=== PATIENT | female | born 1990 | race Caucasian/White ===

== ENCOUNTER 2017-04-01 20:43 | Inpatient (IN) | payer OTHER ==
[2017-04-01] MEDS ORDERED: SODIUM CHLORIDE 1,000 ML IV STA (21:31)
[2017-04-01] MEDS ORDERED: KETOROLAC TROMETHAMINE 30 MG/1 ML VIAL IVPUSH ONE (21:31)
--- NOTE | 2017-04-01 21:40 | PDOC ---
History of Present Illness - General Chief Complaint: Pain Stated Complaint: ABDOMINAL PAIN, SWEATING Time Seen by Provider: 04/01/17 21:19 Past History - Past Medical History Allergies/Adverse Reactions: Allergies Allergy/AdvReac Type Severity Reaction Status Date / Time No Known Allergies Allergy Verified 04/01/17 20:58 Other medical history: denies - Suicide/Smoking/Psychosocial Hx Smoking History: Never smoked *Physical Exam - Vital Signs Last Vital Signs Temp Pulse Resp BP Pulse Ox 97.9 F 85 18 137/91 99 04/01/17 20:55 04/01/17 20:55 04/01/17 20:55 04/01/17 20:55 04/01/17 20:55
--- NOTE | 2017-04-01 21:41 | PDOC ---
Attending Attestation - Resident Resident Name: Harrison Pham - ED Attending Attestation I have performed the following: I have examined & evaluated the patient, The case was reviewed & discussed with the resident, I agree w/resident's findings & plan, Exceptions are as noted - HPI HPI: 04/02/17 01:23 27 yo female p/w severe epigastric pain - Physicial Exam PE: 04/02/17 01:24 WNWD 27 yo female p/w severe epigastric pain radiating to her back HEENT wnl neck supple lungs cta b/l cvs [id number] abd soft,but RUQ tender to palpation++, lower abd is nontender neuro axox3,ambulatory - Medical Decision Making 04/02/17 01:34 elevated LFTs,Tbili>3 , gallbladder 04/03/17 01:42 pt admitted med/surg cholecystitis
[2017-04-01 22:04] LABS: EOSINOPHIL 0.7 % (0-4.5); MCH 28.2 pg (25.7-33.7); MCHC 33.8 g/dl (32.0-36.0); MEAN CELL VOLUME 83.5 fl (80-96); MEAN PLT VOLUME 9.6 fl (7.5-11.1); NEUTROPHILS 67.6 % (42.8-82.8); PLATELET COUNT 246 K/MM3 (134-434); RDW 14.7 % (11.6-15.6); WHITE BLOOD COUNT 8.8 K/mm3 (4.0-10.0)
--- NOTE | 2017-04-01 22:06 | PDOC ---
History of Present Illness - General Chief Complaint: Pain Stated Complaint: ABDOMINAL PAIN, SWEATING Time Seen by Provider: 04/01/17 21:19 - History of Present Illness Initial Comments: 04/01/17 21:49 27 yo F with h/o GERD, and Gastric Sleeve (2011) who presents with abdominal pain. Pt. states that 2 hours ago she experienced sudden onset of diffuse radiating abdominal pain. Pain is unrelenting, 10/10 severity, with burning quality, and radiation to BL flank. No aggravating or alleviating factors. Endorses 1 episode of non biliary, non bloody emesis 24 hours ago attributed to alcohol consumption. + epigastric pain. Denies fevers/chills, SOB, dysuria, hematuria, blood per rectum, constipation, diarrhea, irregular vaginal bleeding. LMP [address] Prabhakar Velarde. Reports that she was recently seen at urgent care facility for UTI 1 week ago and non adherent to Metronidazole and Cipro d/t recurrent N/V, and GI upset. + Weekly alcohol consumption and tobacco use. Denies illicit drug use. Past History - Past Medical History Allergies/Adverse Reactions: Allergies Allergy/AdvReac Type Severity Reaction Status Date / Time No Known Allergies Allergy Verified 04/01/17 20:58 Home Medications: Ambulatory Orders NK [No Known Home Medication] 04/01/17 Other medical history: denies - Suicide/Smoking/Psychosocial Hx Smoking History: Never smoked Review of Systems - Review of Systems Comments:: 04/02/17 00:27 GENERAL/CONSTITUTIONAL: No fever or chills. No weakness. HEAD, EYES, EARS, NOSE AND THROAT: No change in vision. No ear pain or discharge. No sore throat.- CARDIOVASCULAR: No chest pain or shortness of breath RESPIRATORY: No cough, wheezing, or hemoptysis. GASTROINTESTINAL: + abdominal pain and nausea. No vomiting, diarrhea or constipation. GENITOURINARY: + dysuria,No change in frequency, or change in urination. MUSCULOSKELETAL: No joint or muscle swelling or pain. No neck or back pain. SKIN: No rash NEUROLOGIC: No headache, vertigo, loss of consciousness, or change in strength/ sensation. ENDOCRINE: No increased thirst. No abnormal weight change HEMATOLOGIC/LYMPHATIC: No anemia, easy bleeding, or history of blood clots. ALLERGIC/IMMUNOLOGIC: No hives or skin allergy. *Physical Exam - Vital Signs Last Vital Signs Temp Pulse Resp BP Pulse Ox 97.9 F 85 18 137/91 99 04/01/17 20:55 04/01/17 20:55 04/01/17 20:55 04/01/17 20:55 04/01/17 20:55 - Physical Exam Comments: 04/01/17 22:42 GENERAL: Awake, alert, and fully oriented, in no acute distress HEAD: No signs of trauma, normocephalic, atraumatic EYES: + Scleral icterus, PERRLA, EOMI, , conjunctiva clear ENT: Auricles normal inspection, hearing grossly normal, nares patent, oropharynx clear without exudates. Moist mucosa NECK: Normal ROM, supple, no lymphadenopathy, JVD, or masses LUNGS: No distress, speaks full sentences, clear to auscultation bilaterally HEART: Regular rate and rhythm, normal S1 and S2, no murmurs, rubs or gallops, peripheral pulses normal and equal bilaterally. ABDOMEN:+ Epigastric ttp. + Left sided CVA ttp. + RUQ/LUQ ttp. normoactive bowel sounds. No guarding, no rebound, or rigidity. No masses. Neg forde sign. Neg McBurney point ttp. EXTREMITIES : Normal inspection, Normal range of motion, no edema. No clubbing or cyanosis. SKIN: Warm, Dry, normal turgor, no rashes or lesions noted. ED Treatment Course - LABORATORY CBC & Chemistry Diagram: 04/01/17 22:00 04/01/17 22:45 - RADIOLOGY Radiology Studies Ordered: Category Date Time Status GALLBLADDER US [US] Stat Ultrasound 04/01/17 21:41 Ordered Medical Decision Making - Medical Decision Making 04/01/17 22:46 27 yo F with h/o GERD, and Gastric Sleeve (2011) who presents with abdominal pain of 2 hours duration with sudden onset of diffuse, burning epigastric pain radiating to BL flank. 1 episode of non biliary, non bloody emesis 24 hours ago attributed to alcohol consumption. No fevers/chills or other asx. symptoms. Recently evaluated at urgent care facility for UTI 1 week ago and non adherent to Metronidazole and Cipro d/t recurrent N/V, and GI upset. Pt. Hemodynamically stable and afebrile. Physical exam revealed epigastirc ttp and left sided CVA tenderness. DDx: Dyspepsia, nephrolithiasis,choleycytsitis, cholethiasis, pyelonephritis ED Course: CBC, CMP, UA, Urine Preg, RUQ U/S NS 1 L Toradol 30 mg.IVPB, Zofran 4 mg IVPB 04/01/17 22:51 CBC~WBC 8.8 04/02/17 00:28 AST/ALT: 224/430 Alk.Phosph: 196 04/02/17 00:29 Lipase: 159 04/02/17 12:22 Handoff to *DC/Admit/Observation/Transfer Diagnosis at time of Disposition: Acute cholecystitis, Elevated liver enzymes
[2017-04-01] MEDS ORDERED: ONDANSETRON 4 MG/2 ML VIAL IVPB ONE (22:51)
[2017-04-01] MEDS ORDERED: ONDANSETRON 4 MG/2 ML VIAL ONE (23:52)
[2017-04-01 23:59] LABS: ALBUMIN 3.2 g/dl (3.4-5.0); ANION GAP 11 (8-16); CALCIUM 8.4 mg/dL (8.5-10.1); CO2 24 mmol/L (21-32); CREATININE 0.5 mg/dL (0.55-1.02); GLUCOSE,RANDOM 80 mg/dL (74-106); SGOT/AST 224 U/L (15-37)
[2017-04-02 00:01] LABS: ALK PHOS 196 U/L (45-117); BILIRUBIN,TOTAL 3.2 mg/dL (0.2-1.0); SGPT/ALT 430 U/L (12-78)
[2017-04-02] MEDS ORDERED: PIPERACILLIN/TAZOB 3.375 GM 50 ML IVPB ONE ×2 (02:06→03:23)
--- NOTE | 2017-04-02 02:07 | PDOC ---
*Physical Exam - Vital Signs Last Vital Signs Temp Pulse Resp BP Pulse Ox 97.9 F 85 18 137/91 99 04/01/17 20:55 04/01/17 20:55 04/01/17 20:55 04/01/17 20:55 04/01/17 20:55 ED Treatment Course - LABORATORY CBC & Chemistry Diagram: 04/01/17 22:00 04/01/17 22:45 - ADDITIONAL ORDERS Additional order review: Laboratory Results 04/01/17 04/01/17 04/01/17 22:45 22:45 22:00 Sodium 139 Cancelled Potassium 3.3 L Cancelled Chloride 104 Cancelled Carbon Dioxide 24 Cancelled Anion Gap 11 Cancelled BUN 12 Cancelled Creatinine 0.5 L Cancelled Creat Clearance w eGFR > 60 Cancelled Random Glucose 80 Cancelled Calcium 8.4 L Cancelled Total Bilirubin 3.2 H Cancelled AST 224 H Cancelled ALT 430 H Cancelled Alkaline Phosphatase 196 H Cancelled Total Protein 7.0 Cancelled Albumin 3.2 L Cancelled Lipase 159 Serum , Qual Negative 04/01/17 22:00 Sodium Potassium Chloride Carbon Dioxide Anion Gap BUN Creatinine Creat Clearance w eGFR Random Glucose Calcium Total Bilirubin AST ALT Alkaline Phosphatase Total Protein Albumin Lipase Cancelled Serum , Qual 04/01/17 22:00 RBC 4.76 MCV 83.5 MCHC 33.8 RDW 14.7 MPV 9.6 Neutrophils % 67.6 Lymphocytes % 23.0 Monocytes % 7.7 Eosinophils % 0.7 Basophils % 1.0 - Medications Given in the ED: ED Medications Discontinued Medications Generic Name Dose Route Start Last Admin Trade Name Freq PRN Reason Stop Dose Admin Sodium Chloride 1,000 mls @ 1,000 mls/hr 04/01/17 21:31 04/01/17 21:59 Normal Saline - IV 04/01/17 22:30 1,000 mls/hr ASDIR STA Administration Ketorolac Tromethamine 30 mg 04/01/17 21:31 04/01/17 21:59 Toradol Injection - IVPUSH 04/01/17 21:32 30 mg ONCE ONE Administration Ondansetron HCl 4 mg 04/01/17 22:51 04/01/17 23:56 Zofran Injection IVPB 04/01/17 22:52 Not Given ONCE ONE *DC/Admit/Observation/Transfer Diagnosis at time of Disposition: Acute cholecystitis, Elevated liver enzymes - Discharge Dispostion Admit: Yes
[2017-04-02] MEDS ORDERED: ONDANSETRON 4 MG/2 ML VIAL IVPUSH PRN (11:11)
[2017-04-02] MEDS ORDERED: morphine CARPU-JECT 2 MG/1 ML DISP.SYRIN IVPUSH PRN (11:11)
[2017-04-02 11:21] LABS: URINE APPEARANCE SLCLOUDY; URINE BILIRUBIN NEGATIVE (NEGATIVE); URINE BLOOD 3+ (NEGATIVE); URINE COLOR AMBER; URINE GLUCOSE (UA) NEGATIVE (NEGATIVE); URINE KETONE NEGATIVE (NEGATIVE); URINE NITRITE NEGATIVE (NEGATIVE)
[2017-04-02 11:22] LABS: URINE PROTEIN 1+ (NEGATIVE)
[2017-04-02 11:24] VITALS: BMI 40.3
[2017-04-02 11:24] LABS: URINE BACTERIA RARE /hpf (NONE SEEN); URINE MUCUS RARE; URINE RBC 134 /hpf (0-3); URINE WBC 9 /hpf (3-5)
[2017-04-02] MEDS: DEXTROSE 5%-0.45% SALINE 1,000 ML IV SCH (12:00)
[2017-04-02 12:50] LABS: URINE LEUK ESTERASE TRACE (NEGATIVE)
[2017-04-02 13:16] LABS: BASOPHIL 1.1 % (0-2.0); MCH 27.4 pg (25.7-33.7); MCHC 33.1 g/dl (32.0-36.0); MEAN CELL VOLUME 82.9 fl (80-96); MEAN PLT VOLUME 8.9 fl (7.5-11.1); NEUTROPHILS 64.6 % (42.8-82.8); PLATELET COUNT 199 K/MM3 (134-434); RDW 14.6 % (11.6-15.6); WHITE BLOOD COUNT 5.9 K/mm3 (4.0-10.0)
[2017-04-02 13:44] LABS: ALBUMIN 3.1 g/dl (3.4-5.0); ANION GAP 12 (8-16); CALCIUM 8.1 mg/dL (8.5-10.1); CO2 23 mmol/L (21-32); CREATININE 0.5 mg/dL (0.55-1.02); GLUCOSE,RANDOM 89 mg/dL (74-106); SGOT/AST 261 U/L (15-37)
[2017-04-02 13:47] LABS: ALK PHOS 191 U/L (45-117); BILIRUBIN,TOTAL 3.3 mg/dL (0.2-1.0); TOT PROT 6.8 g/dl (6.4-8.2)
[2017-04-02 13:48] LABS: SGPT/ALT 459 U/L (12-78)
--- NOTE | 2017-04-02 16:20 | CONSULT ---
Consult Consult Specialty:: Surgery Reason for Consultation:: Acute cholecystitis - History of Present Illness Chief Complaint: abdominal pain History of Present Illness: 27 yo F with h/o GERD, and Gastric Sleeve (2011) who presents with abdominal pain. Pt. states that 2 hours ago she experienced sudden onset of diffuse radiating abdominal pain. Pain is unrelenting, 10/10 severity, with burning quality, and radiation to BL flank. No aggravating or alleviating factors. Endorses 1 episode of non biliary, non bloody emesis 24 hours ago attributed to alcohol consumption. + epigastric pain. Denies fevers/chills, SOB, dysuria, hematuria, blood per rectum, constipation, diarrhea, irregular vaginal bleeding. Reports that she was recently seen at urgent care facility for UTI 1 week ago and non adherent to Metronidazole and Cipro d/t recurrent N/V, and GI upset. Currently with minimal pain. - History Source History Provided By: Patient Limitations to Obtaining History: No Limitations - Past Medical History ...LMP: 04/02/17 - Alcohol/Substance Use Hx Alcohol Use: Yes - Smoking History Smoking history: Never smoked - Social History History of Recent Travel: No Home Medications - Allergies Allergies/Adverse Reactions: Allergies Allergy/AdvReac Type Severity Reaction Status Date / Time No Known Allergies Allergy Verified 04/01/17 20:58 - Home Medications Home Medications: Ambulatory Orders NK [No Known Home Medication] 04/01/17 Review of Systems - Review of Systems Constitutional: reports: No Symptoms, Other Eyes: reports: No Symptoms HENT: reports: No Symptoms Neck: reports: No Symptoms Cardiovascular: reports: No Symptoms Respiratory: reports: No Symptoms Gastrointestinal: reports: Abdominal Pain, Nausea Pain Intensity: 1 Physical Exam Vital Signs: Vital Signs Temperature 98.2 F 04/02/17 09:08 Pulse Rate 80 04/02/17 11:11 Respiratory Rate 18 04/02/17 11:11 Blood Pressure 126/75 04/02/17 11:11 O2 Sat by Pulse Oximetry (%) 98 04/02/17 11:11 Constitutional: Yes: Well Nourished, No Distress HENT: Yes: Normocephalic Neck: Yes: Supple Cardiovascular: Yes: Regular Rate and Rhythm Respiratory: Yes: CTA Bilaterally Gastrointestinal: Yes: Soft, Abdomen, Obese, Tenderness, Epigastrium (mild) ...Rectal Exam: Yes: Deferred Renal/: Yes: WNL Extremities: Yes: WNL Edema: No Neurological: Yes: Alert, Oriented Labs: CBC, BMP 04/02/17 13:00 04/02/17 13:00 Imaging - Results Cat Scan: Report Reviewed, Image Reviewed Ultrasound: Report Reviewed, Image Reviewed Problem List - Problems (1) Acute cholecystitis Code(s): K81.0 - ACUTE CHOLECYSTITIS Assessment/Plan cholelithiasis r/o choledocholithiasis GI CONSULT MRCP
--- NOTE | 2017-04-02 16:21 | CON.ID ---
Consult Consult Specialty:: infectious diseases Referred by:: Reason for Consultation:: choleycystitis - History of Present Illness Chief Complaint: abd pain History of Present Illness: 27 yo F with h/o GERD, and Gastric Sleeve admitted with abdominal pain. Pt. states that she experienced sudden onset of diffuse radiating abdominal pain. Pain was unrelenting, 10/10 severity, with burning quality, and radiation to BL flank. No aggravating or alleviating factors. Endorses 1 episode of non biliary , non bloody emesis 24 hours ago attributed to alcohol consumption. + epigastric pain. Denies fevers/chills, SOB, dysuria, patient was seen for similar type of pain and thought of uti was there patient received course of flagyl which she stopped because of nausea then she was given cipro which she took for few days felt better so she stopped the med now again since last 2 weeks her pain has flared up in the ruq which forced her to come to the hospital which shows dilation of cbd as well as gall stones currently she feels better - History Source History Provided By: Patient Limitations to Obtaining History: No Limitations - Past Medical History ...LMP: 04/02/17 - Smoking History Smoking history: Never smoked Home Medications - Allergies Allergies/Adverse Reactions: Allergies Allergy/AdvReac Type Severity Reaction Status Date / Time No Known Allergies Allergy Verified 04/01/17 20:58 - Home Medications Home Medications: Ambulatory Orders NK [No Known Home Medication] 04/01/17 Review of Systems - Review of Systems Constitutional: reports: No Symptoms Eyes: reports: No Symptoms HENT: reports: No Symptoms Neck: reports: No Symptoms Cardiovascular: reports: No Symptoms Respiratory: reports: No Symptoms Gastrointestinal: reports: Abdominal Pain, Nausea Genitourinary: reports: No Symptoms Musculoskeletal: reports: No Symptoms Integumentary: reports: No Symptoms Neurological: reports: No Symptoms Endocrine: reports: No Symptoms Hematology/Lymphatic: reports: No Symptoms Psychiatric: reports: No Symptoms Physical Exam Vital Signs: Vital Signs Temperature 98.2 F 04/02/17 09:08 Pulse Rate 80 04/02/17 11:11 Respiratory Rate 18 04/02/17 11:11 Blood Pressure 126/75 04/02/17 11:11 O2 Sat by Pulse Oximetry (%) 98 04/02/17 11:11 Constitutional: Yes: Well Nourished, Calm, Mild Distress, Obese Eyes: Yes: Conjunctiva Clear HENT: Yes: Atraumatic, Normocephalic Neck: Yes: Supple, Trachea Midline Cardiovascular: Yes: Regular Rate and Rhythm Respiratory: Yes: Regular, CTA Bilaterally Gastrointestinal: Yes: Normal Bowel Sounds, Soft, Tenderness, Epigastrium (and ruq) Musculoskeletal: Yes: WNL Extremities: Yes: WNL Neurological: Yes: Alert, Oriented Psychiatric: Yes: Alert, Oriented Labs: CBC, BMP 04/02/17 13:00 04/02/17 13:00 Imaging - Results Ultrasound: Report Reviewed, Image Reviewed Assessment/Plan after loknjg at the patient she probably had choleycystitis which was treated and chances that she could ahve passed a stone cholelithiasis r/o choledocholithiasis surgery note noted plan will start patient on unasyn await for all the results gi to see the patient mrcp rest as per primary
[2017-04-02] MEDS ORDERED: AMPICILLIN NA/SULBACTAM NA 3 GM in SODIUM CHLORIDE 100 ML IVPB SCH (18:00)
[2017-04-02] MEDS: PIPERACILLIN/TAZOB 3.375 GM 50 ML IVPB SCH (18:46)
--- NOTE | 2017-04-02 20:58 | PN ---
Progress Note, Physician - Current Medication List Current Medications: Active Medications Heparin Sodium (Porcine) (Heparin -) 5,000 unit SQ BID [facility] Dextrose/Sodium Chloride (D5-1/2ns -) 1,000 mls @ 75 mls/hr IV ASDIR [facility] Last Admin: 04/02/17 12:00 Dose: 75 mls/hr Piperacillin/Tazobactam/Dextrose (Zosyn 3.375gm Ivpb (Premix)) 50 mls @ 100 mls /hr IVPB Q8H-IV [facility] Last Admin: 04/02/17 18:46 Dose: 100 mls/hr Morphine Sulfate (Morphine Injection -) 2 mg IVPUSH Q6H PRN PRN Reason: PAIN Last Admin: 04/02/17 14:26 Dose: 2 mg Ondansetron HCl (Zofran Injection) 4 mg IVPUSH Q6H PRN PRN Reason: NAUSEA - Objective Vital Signs: Vital Signs Temperature 97.6 F 04/02/17 17:43 Pulse Rate 57 L 04/02/17 17:43 Respiratory Rate 18 04/02/17 17:43 Blood Pressure 112/71 04/02/17 17:43 O2 Sat by Pulse Oximetry (%) 98 04/02/17 11:11 Labs: CBC, BMP 04/02/17 13:00 04/02/17 13:00
--- NOTE | 2017-04-02 21:01 | HP ---
Admitting History and Physical - Admission History of Present Illness: Pt is a 27 y/o female with PMH significant for GERD, morbid obesity and s/p gastric sleeve. Pt presented to the ER w/ acute onset of abdominal pain wc was mostly epigastric to RUQ and associated w/ 1 episode pf vomiting. About 1 week prior pt was treated w/ 2 antibxs for UTI. Pt also admits to recently drinking etoh and thought pain/vomiting was due to etoh. Pt had abdominal US wc showed acute cholecystitis. MRI abd was also done wc showed choledocholithiasis and gallbladder in neck of gallbladder/acute choleycystitis. History Source: Patient - Past Medical History Gastrointestinal: Yes: GERD ...LMP: 04/02/17 - Past Surgical History Additional Past Surgical History: Gastric sleeve - Smoking History Smoking history: Never smoked Home Medications - Allergies Allergies/Adverse Reactions: Allergies Allergy/AdvReac Type Severity Reaction Status Date / Time No Known Allergies Allergy Verified 04/01/17 20:58 - Home Medications Home Medications: Ambulatory Orders NK [No Known Home Medication] 04/01/17 Family Disease History - Family Disease History Family History: Unremarkable Review of Systems - Review of Systems Constitutional: reports: No Symptoms Eyes: reports: No Symptoms HENT: reports: No Symptoms Neck: reports: No Symptoms Cardiovascular: reports: No Symptoms Respiratory: reports: No Symptoms Gastrointestinal: reports: Abdominal Pain, Nausea, Vomiting Physical Examination Vital Signs: Vital Signs Temperature 97.6 F 04/02/17 17:43 Pulse Rate 57 L 04/02/17 17:43 Respiratory Rate 18 04/02/17 17:43 Blood Pressure 112/71 04/02/17 17:43 O2 Sat by Pulse Oximetry (%) 98 04/02/17 11:11 Constitutional: Yes: Well Nourished Eyes: Yes: WNL HENT: Yes: WNL, Atraumatic Neck: Yes: WNL, Supple Cardiovascular: Yes: WNL, Regular Rate and Rhythm Respiratory: Yes: WNL, Regular, CTA Bilaterally Gastrointestinal: Yes: WNL, Normal Bowel Sounds, Soft, Abdomen, Obese Labs: CBC, BMP 04/02/17 13:00 04/02/17 13:00 Problem List - Problems (1) Acute cholecystitis Assessment/Plan: Cont NPO IVF IV zosyn Surgical/GI/ID consults Monitor LFT's Code(s): K81.0 - ACUTE CHOLECYSTITIS
[2017-04-02] MEDS: HEPARIN NA (PORCINE) 5,000 UNITS/ML 1ML VIAL SQ SCH (21:23)
[2017-04-03] MEDS: DEXTROSE 5%-0.45% SALINE 1,000 ML IV SCH ×2 (01:51→21:53)
[2017-04-03] MEDS: PIPERACILLIN/TAZOB 3.375 GM 50 ML IVPB SCH ×3 (01:51→17:35)
[2017-04-03 07:48] LABS: EOSINOPHIL 2.1 % (0-4.5); MCHC 33.7 g/dl (32.0-36.0); MEAN CELL VOLUME 83.1 fl (80-96); MEAN PLT VOLUME 9.2 fl (7.5-11.1); NEUTROPHILS 57.8 % (42.8-82.8); PLATELET COUNT 212 K/MM3 (134-434); RDW 14.3 % (11.6-15.6); WHITE BLOOD COUNT 5.5 K/mm3 (4.0-10.0)
[2017-04-03 08:06] LABS: ALBUMIN 2.9 g/dl (3.4-5.0); ALK PHOS 168 U/L (45-117); ANION GAP 8 (8-16); BILIRUBIN,TOTAL 3.3 mg/dL (0.2-1.0); CALCIUM 8.2 mg/dL (8.5-10.1); CO2 26 mmol/L (21-32); CREATININE 0.6 mg/dL (0.55-1.02); GLUCOSE,RANDOM 91 mg/dL (74-106); SGOT/AST 377 U/L (15-37); TOT PROT 6.4 g/dl (6.4-8.2)
[2017-04-03 09:08] LABS: SGPT/ALT 591 U/L (12-78)
[2017-04-03] MEDS: HEPARIN NA (PORCINE) 5,000 UNITS/ML 1ML VIAL SQ SCH ×2 (10:00→21:53)
--- NOTE | 2017-04-03 15:51 | PN ---
Progress Note, Physician History of Present Illness: patient feeling much better mri done awaiting final plan surgery and gi following - Current Medication List Current Medications: Active Medications Heparin Sodium (Porcine) (Heparin -) 5,000 unit SQ BID [facility] Last Admin: 04/03/17 10:00 Dose: Not Given Dextrose/Sodium Chloride (D5-1/2ns -) 1,000 mls @ 75 mls/hr IV ASDIR [facility] Last Admin: 04/03/17 01:51 Dose: 75 mls/hr Piperacillin/Tazobactam/Dextrose (Zosyn 3.375gm Ivpb (Premix)) 50 mls @ 100 mls /hr IVPB Q8H-IV [facility] Last Admin: 04/03/17 09:59 Dose: 100 mls/hr Morphine Sulfate (Morphine Injection -) 2 mg IVPUSH Q6H PRN PRN Reason: PAIN Last Admin: 04/02/17 14:26 Dose: 2 mg Ondansetron HCl (Zofran Injection) 4 mg IVPUSH Q6H PRN PRN Reason: NAUSEA - Objective Vital Signs: Vital Signs Temperature 98.1 F 04/03/17 15:00 Pulse Rate 63 04/03/17 15:00 Respiratory Rate 18 04/03/17 15:00 Blood Pressure 115/74 04/03/17 15:00 O2 Sat by Pulse Oximetry (%) 98 04/02/17 21:00 Constitutional: Yes: No Distress, Calm, Obese Cardiovascular: Yes: Regular Rate and Rhythm Respiratory: Yes: Regular, CTA Bilaterally Gastrointestinal: Yes: Normal Bowel Sounds, Soft Musculoskeletal: Yes: WNL Extremities: Yes: WNL Neurological: Yes: Alert, Oriented Psychiatric: Yes: Alert, Oriented Labs: CBC, BMP 04/03/17 06:00 04/03/17 06:00 Assessment/Plan cholelithiasis r/o choledocholithiasis plan conitnue abx await for final plan gi and surgery on case rest as per primary
--- NOTE | 2017-04-03 18:34 | PN ---
Progress Note (short form) - Note Progress Note: Denies abdominal pain or nausea Afebrile, VSS Abd: soft, no tenderness WBC = 5K MRCP = dilated CBD with multiple filling defects A: choledocholithiasis and cholelithiasis R: GI for possible ERCP CHOLECYSTECTOMY POST ERCP Problem List - Problems (1) Acute cholecystitis Code(s): K81.0 - ACUTE CHOLECYSTITIS
--- NOTE | 2017-04-03 19:21 | CON.GI ---
Consult Consult Specialty:: GI Referred by:: Dr Stanford Reason for Consultation:: Abdominal pain - History of Present Illness Chief Complaint: Abdominal pain History of Present Illness: Patient is 27 F with h/o gastric sleeve done 2012, GERD who states she has been having abdominal pain for the past 2 weeks that she thought was GERD-related. When the pain became severe, she came to the ER and was noted to have markedly elevated LFT's. last week, she had apin and was seen in an urgi clinic an vanesa Guzman for a presumed UTI because she had blood in her urine. She was menstruating at the time (and still is) She vomited x 1 24 hours prior to admission. She has no pain at this time. She is completely comfortable off pain meds. - History Source History Provided By: Patient Limitations to Obtaining History: No Limitations - Past Medical History Gastrointestinal: Yes: GERD ...LMP: 04/02/17 - Past Surgical History Past Surgical History: Yes: Bariatric Surgery - Alcohol/Substance Use Hx Alcohol Use: Yes - Smoking History Smoking history: Never smoked - Social History History of Recent Travel: No Home Medications - Allergies Allergies/Adverse Reactions: Allergies Allergy/AdvReac Type Severity Reaction Status Date / Time No Known Allergies Allergy Verified 04/01/17 20:58 - Home Medications Home Medications: Ambulatory Orders NK [No Known Home Medication] 04/01/17 Physical Exam-GI Vital Signs: Vital Signs Temperature 98.1 F 04/03/17 15:00 Pulse Rate 63 04/03/17 15:00 Respiratory Rate 18 04/03/17 15:00 Blood Pressure 115/74 04/03/17 15:00 O2 Sat by Pulse Oximetry (%) 98 04/02/17 21:00 Constitutional: Yes: No Distress, Obese Neck: Yes: Supple Cardiovascular: Yes: Regular Rate and Rhythm Respiratory: Yes: CTA Bilaterally Gastrointestinal Inspection: Yes: WNL ...Auscultate: Yes: Normoactive Bowel Sounds ...Palpate: Yes: Soft. No: Tenderness Labs: CBC, BMP 04/03/17 06:00 04/03/17 06:00 Abnormal Lab Results 04/03/17 06:00 Calcium 8.2 L Total Bilirubin 3.3 H AST 377 H D ALT 591 H D Alkaline Phosphatase 168 H Albumin 2.9 L Imaging - Results MRI: Report Reviewed (Stones in gb and CBD) Assessment/Plan 27 F s/p gastric sleeve with no prophylactic cholecystectomy (virtually 100% of bariatric patients develop gallstones) now with stone disease and increased LFT' s. She has no pain or tenderness at this time. t bili >3 and based on MRI showing ductal stones, needs an ERCP. Will arrange for Saturday afternoon. Continue IV AbRx Can have ice chips. IVF Trend LFTs as she may have passed stone Surgery on case and will do to after ERCP
--- NOTE | 2017-04-03 22:22 | PN ---
Progress Note, Physician History of Present Illness: No new complaints - Current Medication List Current Medications: Active Medications Heparin Sodium (Porcine) (Heparin -) 5,000 unit SQ BID [facility] Last Admin: 04/03/17 21:53 Dose: 5,000 unit Dextrose/Sodium Chloride (D5-1/2ns -) 1,000 mls @ 75 mls/hr IV ASDIR [facility] Last Admin: 04/03/17 21:53 Dose: 75 mls/hr Piperacillin/Tazobactam/Dextrose (Zosyn 3.375gm Ivpb (Premix)) 50 mls @ 100 mls /hr IVPB Q8H-IV [facility] Last Admin: 04/03/17 17:35 Dose: 100 mls/hr Morphine Sulfate (Morphine Injection -) 2 mg IVPUSH Q6H PRN PRN Reason: PAIN Last Admin: 04/02/17 14:26 Dose: 2 mg Ondansetron HCl (Zofran Injection) 4 mg IVPUSH Q6H PRN PRN Reason: NAUSEA - Objective Vital Signs: Vital Signs Temperature 97.8 F 04/03/17 19:44 Pulse Rate 53 L 04/03/17 19:44 Respiratory Rate 18 04/03/17 19:44 Blood Pressure 101/61 04/03/17 19:44 O2 Sat by Pulse Oximetry (%) 100 04/03/17 20:45 Constitutional: Yes: Well Nourished Neck: Yes: WNL, Supple Cardiovascular: Yes: WNL, Regular Rate and Rhythm Respiratory: Yes: WNL, Regular, CTA Bilaterally Gastrointestinal: Yes: WNL, Normal Bowel Sounds, Soft, Abdomen, Obese Labs: CBC, BMP 04/03/17 06:00 04/03/17 06:00 Problem List - Problems (1) Acute cholecystitis Assessment/Plan: MRI abd noted Pt to have ERCp Cont liquid diet IV zosyn Code(s): K81.0 - ACUTE CHOLECYSTITIS
[2017-04-04] MEDS: PIPERACILLIN/TAZOB 3.375 GM 50 ML IVPB SCH ×3 (01:52→17:38)
[2017-04-04 07:31] LABS: BASOPHIL 0.9 % (0-2.0); EOSINOPHIL 2.4 % (0-4.5); MCH 27.6 pg (25.7-33.7); MCHC 33.4 g/dl (32.0-36.0); MEAN CELL VOLUME 82.7 fl (80-96); MEAN PLT VOLUME 9.4 fl (7.5-11.1); NEUTROPHILS 58.9 % (42.8-82.8); PLATELET COUNT 204 K/MM3 (134-434); RDW 14.3 % (11.6-15.6)
[2017-04-04 07:53] LABS: INR 1.21 (0.82-1.09); PROTHROMBIN TIME (PATIENT) 13.7 SEC (9.98-11.88)
[2017-04-04 07:56] LABS: ACTIVATED PTT 33.4 SECONDS (26.9-34.4)
[2017-04-04 08:33] LABS: ALBUMIN 3.1 g/dl (3.4-5.0); BILIRUBIN,DIRECT 1.7 mg/dL (0.0-0.2); BILIRUBIN,TOTAL 2.6 mg/dL (0.2-1.0); TOT PROT 6.5 g/dl (6.4-8.2)
--- NOTE | 2017-04-04 10:18 | PN ---
Progress Note (short form) - Note Progress Note: Medical coverage for Dr. Stanford Subjective: The patient was seen and examined at the bedside, she has no complaints at this time. Current Medications Generic Name Dose Route Start Last Admin Trade Name Bob PRN Reason Stop Dose Admin Heparin Sodium (Porcine) 5,000 unit 04/02/17 22:00 04/03/17 21:53 Heparin - SQ 5,000 unit BID [facility] Administration Dextrose/Sodium Chloride 1,000 mls @ 75 mls/hr 04/02/17 11:15 04/03/17 21:53 D5-1/2ns - IV 75 mls/hr ASDIR [facility] Administration Piperacillin/Tazobactam/Dextrose 50 mls @ 100 mls/hr 04/02/17 18:00 04/04/17 01 :52 Zosyn 3.375gm Ivpb (Premix) IVPB 100 mls/hr Q8H-IV [facility] Administration Morphine Sulfate 2 mg 04/02/17 11:11 04/02/17 14:26 Morphine Injection - IVPUSH 2 mg Q6H PRN Administration PAIN Ondansetron HCl 4 mg 04/02/17 11:11 Zofran Injection IVPUSH Q6H PRN NAUSEA Objective: Vital Signs Period Temp Pulse Resp BP Sys/Majano Pulse Ox Last 24 Hr 97.7 F-98.7 F 53-63 16-18 99-138/61-80 100 Physical Exam: General: NAD, A&Ox3 Lungs: CTA bilaterally Heart: RRR, S1S2 Abd: Soft, non-tender, non-distended. Normoactive bowel sounds Ext: Warm, well-perfused Neuro: No focal deficits CBCD WBC 6.0 K/mm3 (4.0-10.0) 04/04/17 06:00 RBC 4.30 M/mm3 (3.60-5.2) 04/04/17 06:00 Hgb 11.9 GM/dL (10.7-15.3) 04/04/17 06:00 Hct 35.6 % (32.4-45.2) 04/04/17 06:00 MCV 82.7 fl (80-96) 04/04/17 06:00 MCHC 33.4 g/dl (32.0-36.0) 04/04/17 06:00 RDW 14.3 % (11.6-15.6) 04/04/17 06:00 Plt Count 204 K/MM3 (134-434) 04/04/17 06:00 MPV 9.4 fl (7.5-11.1) 04/04/17 06:00 CMP Sodium 140 mmol/L (136-145) 04/03/17 06:00 Potassium 3.5 mmol/L (3.5-5.1) 04/03/17 06:00 Chloride 106 mmol/L (98-107) 04/03/17 06:00 Carbon Dioxide 26 mmol/L (21-32) 04/03/17 06:00 Anion Gap 8 (8-16) 04/03/17 06:00 BUN 7 mg/dL (7-18) D 04/03/17 06:00 Creatinine 0.6 mg/dL (0.55-1.02) 04/03/17 06:00 Creat Clearance w eGFR > 60 (>60) 04/03/17 06:00 Random Glucose 91 mg/dL (74-106) 04/03/17 06:00 Calcium 8.2 mg/dL (8.5-10.1) L 04/03/17 06:00 Total Bilirubin 2.6 mg/dL (0.2-1.0) H D 04/04/17 06:00 AST 364 U/L (15-37) H 04/04/17 06:00 ALT 646 U/L (12-78) H 04/04/17 06:00 Alkaline Phosphatase 149 U/L (45-117) H 04/04/17 06:00 Total Protein 6.5 g/dl (6.4-8.2) 04/04/17 06:00 Albumin 3.1 g/dl (3.4-5.0) L 04/04/17 06:00 Microbiology 04/02/17 11:00 Urine - Urine Clean Catch Urine Culture - Final Contaminated: Please Repeat Assessment: This is a 27 year old female with PMHx of GERD, morbid obesity s/p gastric sleeve, who presented to the ED with acute onset of epigastric pain and vomiting. Plan: 1) Visit type - Emergency Visit Emergency Visit: Yes ED Registration Date: 04/02/17 Care time: The patient presented to the Emergency Department on the above date and was hospitalized for further evaluation of their emergent condition. - New Patient This patient is new to me today: Yes Date on this admission: 04/04/17 - Critical Care Critical Care patient: No
[2017-04-04] MEDS: HEPARIN NA (PORCINE) 5,000 UNITS/ML 1ML VIAL SQ SCH ×2 (11:45→21:48)
--- NOTE | 2017-04-04 15:24 | PN ---
Progress Note, Physician History of Present Illness: stable patient for ercp tomorrow - Current Medication List Current Medications: Active Medications Heparin Sodium (Porcine) (Heparin -) 5,000 unit SQ BID [facility] Last Admin: 04/04/17 11:45 Dose: 5,000 unit Dextrose/Sodium Chloride (D5-1/2ns -) 1,000 mls @ 75 mls/hr IV ASDIR [facility] Last Admin: 04/03/17 21:53 Dose: 75 mls/hr Piperacillin/Tazobactam/Dextrose (Zosyn 3.375gm Ivpb (Premix)) 50 mls @ 100 mls /hr IVPB Q8H-IV [facility] Last Admin: 04/04/17 11:40 Dose: 100 mls/hr Morphine Sulfate (Morphine Injection -) 2 mg IVPUSH Q6H PRN PRN Reason: PAIN Last Admin: 04/02/17 14:26 Dose: 2 mg Ondansetron HCl (Zofran Injection) 4 mg IVPUSH Q6H PRN PRN Reason: NAUSEA - Objective Vital Signs: Vital Signs Temperature 98.4 F 04/04/17 13:57 Pulse Rate 54 L 04/04/17 13:57 Respiratory Rate 18 04/04/17 13:57 Blood Pressure 104/62 04/04/17 13:57 O2 Sat by Pulse Oximetry (%) 100 04/04/17 11:00 Constitutional: Yes: No Distress, Calm, Obese Cardiovascular: Yes: Regular Rate and Rhythm Respiratory: Yes: Regular, CTA Bilaterally Gastrointestinal: Yes: Normal Bowel Sounds, Soft Musculoskeletal: Yes: WNL Extremities: Yes: WNL Neurological: Yes: Alert, Oriented Psychiatric: Yes: Alert, Oriented Labs: CBC, BMP 04/04/17 06:00 04/03/17 06:00 INR, PTT INR 1.21 (0.82-1.09) H 04/04/17 06:00 Assessment/Plan cholelithiasis r/o choledocholithiasis obesity plan conitnue abx patient for ercp tomorrow
--- NOTE | 2017-04-04 17:51 | PN ---
GI Progress Note Subjective: no abdominal pain, no nausea and no vomiting - Objective Vital Signs: Vital Signs Temperature 98.0 F 04/04/17 17:00 Pulse Rate 50 L 04/04/17 17:00 Respiratory Rate 18 04/04/17 17:00 Blood Pressure 113/72 04/04/17 17:00 O2 Sat by Pulse Oximetry (%) 100 04/04/17 11:00 Constitutional: Well Nourished Eyes: Yes: Conjunctiva Clear HENT: Yes: Atraumatic Neck: Yes: Supple Cardiovascular: Yes: Regular Rate and Rhythm Respiratory: Yes: CTA Bilaterally ...Palpate: Yes: Soft. No: Firm/Rigid, Guarding, Hepatomegaly, Mass, Pulsatile Mass, Splenomegaly, Tenderness Labs: CBC, BMP 04/04/17 06:00 04/03/17 06:00 INR, PTT INR 1.21 (0.82-1.09) H 04/04/17 06:00 Hepatic Panel Total Bilirubin 2.6 mg/dL (0.2-1.0) H D 04/04/17 06:00 Direct Bilirubin 1.7 mg/dL (0.0-0.2) H 04/04/17 06:00 AST 364 U/L (15-37) H 04/04/17 06:00 ALT 646 U/L (12-78) H 04/04/17 06:00 Alkaline Phosphatase 149 U/L (45-117) H 04/04/17 06:00 Albumin 3.1 g/dl (3.4-5.0) L 04/04/17 06:00 Problem List - Problems (1) Common bile duct calculi Assessment/Plan: For ERCP --risk icluding pancreatitis, perforation and bleeding was discussed, informed consent obtained. Code(s): K80.50 - CALCULUS OF BILE DUCT W/O CHOLANGITIS OR CHOLECYST W/O OBST
[2017-04-04] MEDS: DEXTROSE 5%-0.45% SALINE 1,000 ML IV SCH (21:47)
[2017-04-05] MEDS: DEXTROSE 5%-0.45% SALINE 1,000 ML IV SCH ×2 (01:31→18:25)
[2017-04-05] MEDS: PIPERACILLIN/TAZOB 3.375 GM 50 ML IVPB SCH ×3 (01:32→18:28)
[2017-04-05 08:34] LABS: ALBUMIN 2.9 g/dl (3.4-5.0); ANION GAP 9 (8-16); CALCIUM 8.1 mg/dL (8.5-10.1); CO2 26 mmol/L (21-32); GLUCOSE,RANDOM 75 mg/dL (74-106); SGOT/AST 363 U/L (15-37)
[2017-04-05 08:36] LABS: ALK PHOS 166 U/L (45-117); BILIRUBIN,TOTAL 2.7 mg/dL (0.2-1.0); CREATININE 0.6 mg/dL (0.55-1.02); TOT PROT 6.3 g/dl (6.4-8.2)
[2017-04-05 08:44] LABS: SGPT/ALT 673 U/L (12-78)
[2017-04-05] MEDS: HEPARIN NA (PORCINE) 5,000 UNITS/ML 1ML VIAL SQ SCH ×2 (10:29→21:11)
--- NOTE | 2017-04-05 13:03 | PN ---
Progress Note, Physician Chief Complaint: NPO awaiting ERCP no nausea no abdominal pain - Current Medication List Current Medications: Active Medications Heparin Sodium (Porcine) (Heparin -) 5,000 unit SQ BID [facility] Last Admin: 04/05/17 10:29 Dose: Not Given Dextrose/Sodium Chloride (D5-1/2ns -) 1,000 mls @ 75 mls/hr IV ASDIR [facility] Last Admin: 04/05/17 01:31 Dose: 75 mls/hr Piperacillin/Tazobactam/Dextrose (Zosyn 3.375gm Ivpb (Premix)) 50 mls @ 100 mls /hr IVPB Q8H-IV [facility] Last Admin: 04/05/17 10:31 Dose: 100 mls/hr Ondansetron HCl (Zofran Injection) 4 mg IVPUSH Q6H PRN PRN Reason: NAUSEA - Objective Vital Signs: Vital Signs Temperature 97.7 F 04/05/17 09:05 Pulse Rate 59 L 04/05/17 09:05 Respiratory Rate 16 04/05/17 09:05 Blood Pressure 124/76 04/05/17 09:05 O2 Sat by Pulse Oximetry (%) 100 04/04/17 21:45 Constitutional: Yes: Calm Cardiovascular: Yes: Regular Rate and Rhythm, S1, S2 Respiratory: Yes: CTA Bilaterally Gastrointestinal: Yes: Normal Bowel Sounds, Soft Edema: No Neurological: Yes: Alert, Oriented Labs: CBC, BMP 04/04/17 06:00 04/05/17 06:30 INR, PTT INR 1.21 (0.82-1.09) H 04/04/17 06:00 Problem List - Problems (1) Common bile duct calculi Assessment/Plan: NPO for ERCP today GI on board Code(s): K80.50 - CALCULUS OF BILE DUCT W/O CHOLANGITIS OR CHOLECYST W/O OBST (2) Elevated liver enzymes Assessment/Plan: on abx for ERCP Code(s): R74.8 - ABNORMAL LEVELS OF OTHER SERUM ENZYMES
--- NOTE | 2017-04-05 14:09 | PN ---
Progress Note, Physician History of Present Illness: stable patient for ercp today no complaints - Current Medication List Current Medications: Active Medications Heparin Sodium (Porcine) (Heparin -) 5,000 unit SQ BID [facility] Last Admin: 04/05/17 10:29 Dose: Not Given Dextrose/Sodium Chloride (D5-1/2ns -) 1,000 mls @ 75 mls/hr IV [facility]IR [facility] Last Admin: 04/05/17 01:31 Dose: 75 mls/hr Piperacillin/Tazobactam/Dextrose (Zosyn 3.375gm Ivpb (Premix)) 50 mls @ 100 mls /hr IVPB Q8H-IV [facility] Last Admin: 04/05/17 10:31 Dose: 100 mls/hr Ondansetron HCl (Zofran Injection) 4 mg IVPUSH Q6H PRN PRN Reason: NAUSEA - Objective Vital Signs: Vital Signs Temperature 97.7 F 04/05/17 09:05 Pulse Rate 59 L 04/05/17 09:05 Respiratory Rate 16 04/05/17 09:05 Blood Pressure 124/76 04/05/17 09:05 O2 Sat by Pulse Oximetry (%) 100 04/05/17 09:00 Constitutional: Yes: No Distress, Calm Cardiovascular: Yes: Regular Rate and Rhythm Respiratory: Yes: Regular, CTA Bilaterally Gastrointestinal: Yes: Normal Bowel Sounds, Soft Musculoskeletal: Yes: WNL Extremities: Yes: WNL Neurological: Yes: Alert, Oriented Psychiatric: Yes: Alert, Oriented Labs: CBC, BMP 04/04/17 06:00 04/05/17 06:30 INR, PTT INR 1.21 (0.82-1.09) H 04/04/17 06:00 Assessment/Plan cholelithiasis r/o choledocholithiasis obesity plan conitnue abx patient for ercp rest as per gi primary
[2017-04-05] MEDS ORDERED: ROCURONIUM BROMIDE 50 MG/5 ML VIAL ONE (16:02)
[2017-04-05] MEDS ORDERED: NEOSTIGMINE METHYLSULFATE 0.5 MG/ML - 10 ML MDV ONE (16:03)
[2017-04-05] MEDS ORDERED: GLYCOPYRROLATE 0.2 MG/1 ML VIAL ONE ×3 (16:03)
[2017-04-05] MEDS ORDERED: ONDANSETRON 4 MG/2 ML VIAL ONE (16:03)
[2017-04-05] MEDS ORDERED: PROPOFOL 20 ML ONE ×2 (16:03)
[2017-04-05] MEDS ORDERED: INDOMETHACIN 50 MG RECTAL SUPPOSITORY PR ONE ×2 (16:42→17:10)
--- NOTE | 2017-04-05 17:05 | PN ---
Progress Note (short form) - Note Progress Note: Preop: CBD stone Postop: same. low lying cystic duct with CBD stone, normal pancreatic duct, Procedure ERCP with sphincterotomy removal of stone by biliary balloon, pancreatic duct stent, Indocin suppository Problem List - Problems (1) Common bile duct calculi Code(s): K80.50 - CALCULUS OF BILE DUCT W/O CHOLANGITIS OR CHOLECYST W/O OBST
[2017-04-05] MEDS ORDERED: PANTOPRAZOLE SODIUM 40 MG in SODIUM CHLORIDE 100 ML IVPB ONE (17:08)
[2017-04-05] MEDS ORDERED: KETOROLAC TROMETHAMINE 30 MG/1 ML VIAL IVPUSH PRN (17:09)
[2017-04-05] MEDS ORDERED: PANTOPRAZOLE SODIUM 40 MG VIAL IVPUSH ONE (17:15)
[2017-04-05] MEDS: METOCLOPRAMIDE HCL INJECTION 10 MG/2 ML VIAL IVPB SCH (18:28)
[2017-04-05] MEDS: LACTATED RINGERS SOLUTION 1,000 ML IV SCH (18:28)
[2017-04-06] MEDS: PIPERACILLIN/TAZOB 3.375 GM 50 ML IVPB SCH ×3 (01:29→17:58)
[2017-04-06] MEDS: METOCLOPRAMIDE HCL INJECTION 10 MG/2 ML VIAL IVPB SCH ×3 (01:29→18:31)
[2017-04-06] MEDS: LACTATED RINGERS SOLUTION 1,000 ML IV SCH ×2 (01:37→18:03)
[2017-04-06 08:14] LABS: ALBUMIN 2.9 g/dl (3.4-5.0); ANION GAP 11 (8-16); CALCIUM 8.2 mg/dL (8.5-10.1); CO2 24 mmol/L (21-32); GLUCOSE,RANDOM 66 mg/dL (74-106)
[2017-04-06 08:18] LABS: ALK PHOS 144 U/L (45-117); BILIRUBIN,TOTAL 2.6 mg/dL (0.2-1.0); CREATININE 0.4 mg/dL (0.55-1.02); SGOT/AST 353 U/L (15-37)
[2017-04-06 08:31] LABS: SGPT/ALT 674 U/L (12-78)
[2017-04-06] MEDS: HEPARIN NA (PORCINE) 5,000 UNITS/ML 1ML VIAL SQ SCH ×2 (09:29→21:56)
--- NOTE | 2017-04-06 13:20 | PN ---
Progress Note, Physician History of Present Illness: Had ERCP sphincterotomy, removal of CBD stones and stent placement yesterday denies abdominal pain post-ERCP tolerating clear liquids - Current Medication List Current Medications: Active Medications Heparin Sodium (Porcine) (Heparin -) 5,000 unit SQ BID [facility] Last Admin: 04/06/17 09:29 Dose: 5,000 unit Piperacillin/Tazobactam/Dextrose (Zosyn 3.375gm Ivpb (Premix)) 50 mls @ 100 mls /hr IVPB Q8H-IV [facility] Last Admin: 04/06/17 09:20 Dose: 100 mls/hr Lactated Ringer's (Lactated Ringers Solution) 1,000 mls @ 125 mls/hr IV ASDIR [facility] Stop: 04/08/17 01:14 Last Admin: 04/06/17 01:37 Dose: 125 mls/hr Ketorolac Tromethamine (Toradol Injection -) 30 mg IVPUSH Q6H PRN PRN Reason: PAIN Stop: 04/10/17 17:08 Metoclopramide HCl (Reglan Injection -) 10 mg IVPB Q8H [facility] Last Admin: 04/06/17 10:00 Dose: 10 mg Ondansetron HCl (Zofran Injection) 4 mg IVPUSH Q6H PRN PRN Reason: NAUSEA - Objective Vital Signs: Vital Signs Temperature 98 F 04/06/17 09:00 Pulse Rate 55 L 04/06/17 09:00 Respiratory Rate 18 04/06/17 09:00 Blood Pressure 122/70 04/06/17 09:00 O2 Sat by Pulse Oximetry (%) 100 04/06/17 09:00 Constitutional: Yes: Well Nourished Eyes: Yes: Conjunctiva Clear Respiratory: Yes: Regular, CTA Bilaterally Gastrointestinal: Yes: Soft, Abdomen, Obese, Other (no tenderness) Labs: CBC, BMP 04/04/17 06:00 04/06/17 06:00 INR, PTT INR 1.21 (0.82-1.09) H 04/04/17 06:00 Problem List - Problems (1) Acute cholecystitis Code(s): K81.0 - ACUTE CHOLECYSTITIS (2) Common bile duct calculi Code(s): K80.50 - CALCULUS OF BILE DUCT W/O CHOLANGITIS OR CHOLECYST W/O OBST (3) Cholelithiasis Code(s): K80.20 - CALCULUS OF GALLBLADDER W/O CHOLECYSTITIS W/O OBSTRUCTION Qualifiers: Cholelithiasis location: gallbladder and bile duct Assessment/Plan advance to full liquids for laparoscopic cholecystectomy on 04/08/17 Npo after MN on 04/07/17 Risks, benfits, and alternatives to the procedure discussed with patient
--- NOTE | 2017-04-06 13:49 | PN ---
GI Progress Note Subjective: S/P ERCP Feels well. No pain. - Objective Vital Signs: Vital Signs Temperature 98 F 04/06/17 09:00 Pulse Rate 55 L 04/06/17 09:00 Respiratory Rate 18 04/06/17 09:00 Blood Pressure 122/70 04/06/17 09:00 O2 Sat by Pulse Oximetry (%) 100 04/06/17 09:00 Constitutional: Well Nourished HENT: Yes: Normocephalic Neck: Yes: Supple Cardiovascular: Yes: Regular Rate and Rhythm Respiratory: Yes: CTA Bilaterally Gastrointestinal Inspection: Yes: WNL ...Auscultate: Yes: Normoactive Bowel Sounds ...Palpate: Yes: Soft. No: Tenderness Labs: CBC, BMP 04/04/17 06:00 04/06/17 06:00 INR, PTT INR 1.21 (0.82-1.09) H 04/04/17 06:00 Hepatic Panel Total Bilirubin 2.6 mg/dL (0.2-1.0) H 04/06/17 06:00 Direct Bilirubin 1.7 mg/dL (0.0-0.2) H 04/04/17 06:00 AST 353 U/L (15-37) H 04/06/17 06:00 ALT 674 U/L (12-78) H 04/06/17 06:00 Alkaline Phosphatase 144 U/L (45-117) H 04/06/17 06:00 Albumin 2.9 g/dl (3.4-5.0) L 04/06/17 06:00 Assessment/Plan 27 F s/p gastric sleeve with no prophylactic cholecystectomy (virtually 100% of bariatric patients develop gallstones) now with stone disease. S/P ERCP with extraction of large stones from CBD. Stent placed. LFTs are stable. No leukocytosis. For to Mon.
--- NOTE | 2017-04-06 15:40 | PN ---
Progress Note, Physician History of Present Illness: Pt seen and examined, records reviewed. s/p ERCP, denies fever/chills or abd pain. Has no specific complaints. - Current Medication List Current Medications: Active Medications Heparin Sodium (Porcine) (Heparin -) 5,000 unit SQ BID [facility] Last Admin: 04/06/17 09:29 Dose: 5,000 unit Piperacillin/Tazobactam/Dextrose (Zosyn 3.375gm Ivpb (Premix)) 50 mls @ 100 mls /hr IVPB Q8H-IV [facility] Last Admin: 04/06/17 09:20 Dose: 100 mls/hr Lactated Ringer's (Lactated Ringers Solution) 1,000 mls @ 125 mls/hr IV ASDIR [facility] Stop: 04/08/17 01:14 Last Admin: 04/06/17 01:37 Dose: 125 mls/hr Ketorolac Tromethamine (Toradol Injection -) 30 mg IVPUSH Q6H PRN PRN Reason: PAIN Stop: 04/10/17 17:08 Metoclopramide HCl (Reglan Injection -) 10 mg IVPB Q8H [facility] Last Admin: 04/06/17 10:00 Dose: 10 mg Ondansetron HCl (Zofran Injection) 4 mg IVPUSH Q6H PRN PRN Reason: NAUSEA - Objective Vital Signs: Vital Signs Temperature 97.6 F 04/06/17 13:47 Pulse Rate 63 04/06/17 13:47 Respiratory Rate 18 04/06/17 13:47 Blood Pressure 97/61 04/06/17 13:47 O2 Sat by Pulse Oximetry (%) 100 04/06/17 09:00 Constitutional: Yes: No Distress, Calm Cardiovascular: Yes: Regular Rate and Rhythm Respiratory: Yes: CTA Bilaterally Gastrointestinal: Yes: Normal Bowel Sounds, Soft Genitourinary: Yes: WNL Extremities: Yes: WNL Integumentary: Yes: WNL Labs: CBC, BMP 04/04/17 06:00 04/06/17 06:00 INR, PTT INR 1.21 (0.82-1.09) H 04/04/17 06:00 Problem List - Problems (1) Acute cholecystitis Code(s): K81.0 - ACUTE CHOLECYSTITIS (2) Cholelithiasis Code(s): K80.20 - CALCULUS OF GALLBLADDER W/O CHOLECYSTITIS W/O OBSTRUCTION Qualifiers: Cholelithiasis location: gallbladder and bile duct (3) Common bile duct calculi Code(s): K80.50 - CALCULUS OF BILE DUCT W/O CHOLANGITIS OR CHOLECYST W/O OBST Assessment/Plan S/P ERCP sphincterotomy, CBD stones removal, stent placement - continue current antibiotic - scheduled for lap cholecystectomy patient currently stable
--- NOTE | 2017-04-06 23:19 | PN ---
Progress Note, Physician - Current Medication List Current Medications: Active Medications Heparin Sodium (Porcine) (Heparin -) 5,000 unit SQ BID [facility] Last Admin: 04/06/17 21:56 Dose: 5,000 unit Piperacillin/Tazobactam/Dextrose (Zosyn 3.375gm Ivpb (Premix)) 50 mls @ 100 mls /hr IVPB Q8H-IV [facility] Last Admin: 04/06/17 17:58 Dose: 100 mls/hr Lactated Ringer's (Lactated Ringers Solution) 1,000 mls @ 125 mls/hr IV ASDIR [facility] Stop: 04/08/17 01:14 Last Admin: 04/06/17 18:03 Dose: 125 mls/hr Ketorolac Tromethamine (Toradol Injection -) 30 mg IVPUSH Q6H PRN PRN Reason: PAIN Stop: 04/10/17 17:08 Metoclopramide HCl (Reglan Injection -) 10 mg IVPB Q8H [facility] Last Admin: 04/06/17 18:31 Dose: 10 mg Ondansetron HCl (Zofran Injection) 4 mg IVPUSH Q6H PRN PRN Reason: NAUSEA - Objective Vital Signs: Vital Signs Temperature 98.4 F 04/06/17 18:50 Pulse Rate 54 L 04/06/17 18:50 Respiratory Rate 18 04/06/17 18:50 Blood Pressure 105/54 04/06/17 18:50 O2 Sat by Pulse Oximetry (%) 100 04/06/17 09:00 Labs: CBC, BMP 04/04/17 06:00 04/06/17 06:00 INR, PTT INR 1.21 (0.82-1.09) H 04/04/17 06:00 Problem List - Problems (1) Acute cholecystitis Code(s): K81.0 - ACUTE CHOLECYSTITIS
[2017-04-07] MEDS: METOCLOPRAMIDE HCL INJECTION 10 MG/2 ML VIAL IVPB SCH ×3 (01:24→17:23)
[2017-04-07] MEDS: PIPERACILLIN/TAZOB 3.375 GM 50 ML IVPB SCH ×3 (01:27→17:23)
[2017-04-07 08:20] LABS: BASOPHIL 0.8 % (0-2.0); EOSINOPHIL 1.7 % (0-4.5); MCH 28.3 pg (25.7-33.7); MEAN CELL VOLUME 83.3 fl (80-96); MEAN PLT VOLUME 9.7 fl (7.5-11.1); NEUTROPHILS 60.3 % (42.8-82.8); PLATELET COUNT 237 K/MM3 (134-434); RDW 14.2 % (11.6-15.6); WHITE BLOOD COUNT 5.3 K/mm3 (4.0-10.0)
[2017-04-07 08:44] LABS: ALBUMIN 2.9 g/dl (3.4-5.0); BILIRUBIN,DIRECT 1.5 mg/dL (0.0-0.2); SGOT/AST 349 U/L (15-37)
[2017-04-07 08:46] LABS: ALK PHOS 145 U/L (45-117); BILIRUBIN,TOTAL 2.2 mg/dL (0.2-1.0); TOT PROT 6.3 g/dl (6.4-8.2)
[2017-04-07 09:07] LABS: SGPT/ALT 678 U/L (12-78)
[2017-04-07] MEDS: HEPARIN NA (PORCINE) 5,000 UNITS/ML 1ML VIAL SQ SCH ×2 (09:16→21:02)
[2017-04-07] MEDS: LACTATED RINGERS SOLUTION 1,000 ML IV SCH (17:23)
--- NOTE | 2017-04-07 18:14 | PN ---
Progress Note, Physician History of Present Illness: Pt seen and examined. Has no complaints. States she feels well. Denies abd pain/ n/v/d, remains afebrile. - Current Medication List Current Medications: Active Medications Heparin Sodium (Porcine) (Heparin -) 5,000 unit SQ BID [facility] Last Admin: 04/07/17 09:16 Dose: Not Given Piperacillin/Tazobactam/Dextrose (Zosyn 3.375gm Ivpb (Premix)) 50 mls @ 100 mls /hr IVPB Q8H-IV [facility] Last Admin: 04/07/17 17:23 Dose: 100 mls/hr Lactated Ringer's (Lactated Ringers Solution) 1,000 mls @ 125 mls/hr IV ASDIR [facility] Stop: 04/08/17 01:14 Last Admin: 04/07/17 17:23 Dose: Not Given Ketorolac Tromethamine (Toradol Injection -) 30 mg IVPUSH Q6H PRN PRN Reason: PAIN Stop: 04/10/17 17:08 Metoclopramide HCl (Reglan Injection -) 10 mg IVPB Q8H [facility] Last Admin: 04/07/17 17:23 Dose: 10 mg Ondansetron HCl (Zofran Injection) 4 mg IVPUSH Q6H PRN PRN Reason: NAUSEA - Objective Vital Signs: Vital Signs Temperature 98 F 04/07/17 15:59 Pulse Rate 67 04/07/17 15:59 Respiratory Rate 16 04/07/17 15:59 Blood Pressure 120/78 04/07/17 15:59 O2 Sat by Pulse Oximetry (%) 100 04/07/17 09:00 Constitutional: Yes: No Distress, Calm Cardiovascular: Yes: Regular Rate and Rhythm Respiratory: Yes: CTA Bilaterally Gastrointestinal: Yes: Normal Bowel Sounds, Soft Extremities: Yes: WNL Neurological: Yes: Alert, Oriented Labs: CBC, BMP 04/07/17 06:05 04/06/17 06:00 INR, PTT INR 1.21 (0.82-1.09) H 04/04/17 06:00 Problem List - Problems (1) Acute cholecystitis Code(s): K81.0 - ACUTE CHOLECYSTITIS (2) Cholelithiasis Code(s): K80.20 - CALCULUS OF GALLBLADDER W/O CHOLECYSTITIS W/O OBSTRUCTION Qualifiers: Cholelithiasis location: gallbladder and bile duct (3) Common bile duct calculi Code(s): K80.50 - CALCULUS OF BILE DUCT W/O CHOLANGITIS OR CHOLECYST W/O OBST Assessment/Plan S/P ERCP sphincterotomy, CBD stones removal, stent placement - continue current antibiotic - awaiting lap cholecystectomy that's scheduled patient doing well
--- NOTE | 2017-04-07 19:57 | PN ---
Progress Note, Physician History of Present Illness: Pt tolerating clears No pain - Current Medication List Current Medications: Active Medications Heparin Sodium (Porcine) (Heparin -) 5,000 unit SQ BID [facility] Last Admin: 04/07/17 09:16 Dose: Not Given Piperacillin/Tazobactam/Dextrose (Zosyn 3.375gm Ivpb (Premix)) 50 mls @ 100 mls /hr IVPB Q8H-IV [facility] Last Admin: 04/07/17 17:23 Dose: 100 mls/hr Lactated Ringer's (Lactated Ringers Solution) 1,000 mls @ 125 mls/hr IV ASDIR [facility] Stop: 04/08/17 01:14 Last Admin: 04/07/17 17:23 Dose: Not Given Ketorolac Tromethamine (Toradol Injection -) 30 mg IVPUSH Q6H PRN PRN Reason: PAIN Stop: 04/10/17 17:08 Metoclopramide HCl (Reglan Injection -) 10 mg IVPB Q8H [facility] Last Admin: 04/07/17 17:23 Dose: 10 mg Ondansetron HCl (Zofran Injection) 4 mg IVPUSH Q6H PRN PRN Reason: NAUSEA - Objective Vital Signs: Vital Signs Temperature 98.5 F 04/07/17 18:48 Pulse Rate 66 04/07/17 18:48 Respiratory Rate 18 04/07/17 18:48 Blood Pressure 115/75 04/07/17 18:48 O2 Sat by Pulse Oximetry (%) 100 04/07/17 09:00 Constitutional: Yes: Well Nourished HENT: Yes: WNL Neck: Yes: WNL, Supple Cardiovascular: Yes: WNL, Regular Rate and Rhythm Respiratory: Yes: WNL, Regular, CTA Bilaterally Gastrointestinal: Yes: WNL, Normal Bowel Sounds, Soft, Abdomen, Obese Labs: CBC, BMP 04/07/17 06:05 04/06/17 06:00 INR, PTT INR 1.21 (0.82-1.09) H 04/04/17 06:00 Problem List - Problems (1) Acute cholecystitis Assessment/Plan: S/P ERCP w/ sphincterptpmy/stone extraction and stent placement Cont liquid diet IV zosyn Pt for lap choley in am Code(s): K81.0 - ACUTE CHOLECYSTITIS
[2017-04-08] MEDS: METOCLOPRAMIDE HCL INJECTION 10 MG/2 ML VIAL IVPB SCH ×3 (01:43→18:05)
[2017-04-08] MEDS: PIPERACILLIN/TAZOB 3.375 GM 50 ML IVPB SCH ×3 (01:46→17:26)
[2017-04-08] MEDS: HEPARIN NA (PORCINE) 5,000 UNITS/ML 1ML VIAL SQ SCH ×2 (09:40→22:00)
--- NOTE | 2017-04-08 12:30 | PN ---
Progress Note, Physician History of Present Illness: stable no new issues - Current Medication List Current Medications: Active Medications Heparin Sodium (Porcine) (Heparin -) 5,000 unit SQ BID [facility] Last Admin: 04/08/17 09:40 Dose: Not Given Piperacillin/Tazobactam/Dextrose (Zosyn 3.375gm Ivpb (Premix)) 50 mls @ 100 mls /hr IVPB Q8H-IV [facility] Last Admin: 04/08/17 09:35 Dose: 100 mls/hr Ketorolac Tromethamine (Toradol Injection -) 30 mg IVPUSH Q6H PRN PRN Reason: PAIN Stop: 04/10/17 17:08 Metoclopramide HCl (Reglan Injection -) 10 mg IVPB Q8H [facility] Last Admin: 04/08/17 09:35 Dose: 10 mg Ondansetron HCl (Zofran Injection) 4 mg IVPUSH Q6H PRN PRN Reason: NAUSEA - Objective Vital Signs: Vital Signs Temperature 97.5 F L 04/08/17 08:38 Pulse Rate 66 04/08/17 08:38 Respiratory Rate 18 04/08/17 08:38 Blood Pressure 114/66 04/08/17 08:38 O2 Sat by Pulse Oximetry (%) 95 04/07/17 21:00 Constitutional: Yes: No Distress, Calm HENT: Yes: Atraumatic Neck: Yes: Supple, Trachea Midline Cardiovascular: Yes: Regular Rate and Rhythm Respiratory: Yes: Regular, CTA Bilaterally Gastrointestinal: Yes: Normal Bowel Sounds, Soft Musculoskeletal: Yes: WNL Extremities: Yes: WNL Neurological: Yes: Alert, Oriented Psychiatric: Yes: Alert, Oriented Labs: CBC, BMP 04/07/17 06:05 04/06/17 06:00 INR, PTT INR 1.21 (0.82-1.09) H 04/04/17 06:00 Assessment/Plan cholelithiasis r/o choledocholithiasis obesity plan continue abx patient for cholecystectomy today post choley might deescalate abx rest as per primary team
[2017-04-08] MEDS ORDERED: PROPOFOL 20 ML ONE (13:07)
[2017-04-08] MEDS ORDERED: MIDAZOLAM HCL 2 MG/2 ML SINGLE DOSE VIAL ONE (13:08)
[2017-04-08] MEDS ORDERED: ROCURONIUM BROMIDE 50 MG/5 ML VIAL ONE (13:09)
[2017-04-08] MEDS ORDERED: LIDOCAINE HCL/PF 2% SDV 5ML VIAL ONE (13:10)
[2017-04-08] MEDS ORDERED: HYDROmorphone HCL/PF 1 MG/ML VIAL (FOR PYXIS CHARGING ONLY) ONE (14:03)
[2017-04-08] MEDS ORDERED: ONDANSETRON 4 MG/2 ML VIAL ONE (14:08)
[2017-04-08] MEDS ORDERED: DEXAMETHASONE SOD PHOSPHATE 4 MG/1 ML VIAL ONE (14:08)
[2017-04-08] MEDS ORDERED: NEOSTIGMINE METHYLSULFATE 0.5 MG/ML - 10 ML MDV ONE (14:43)
[2017-04-08] MEDS ORDERED: GLYCOPYRROLATE 0.2 MG/1 ML VIAL ONE ×2 (14:45→14:47)
[2017-04-08] MEDS ORDERED: KETOROLAC TROMETHAMINE 30 MG/1 ML VIAL ONE (14:48)
--- NOTE | 2017-04-08 14:58 | OP ---
Operative Note - Note: Operative Date: 04/08/17 Pre-Operative Diagnosis: cholelithiasis and choledocholithiasis Operation: Laparoscopic cholecystectomy Findings: gallbladder with multiple small stones Post-Operative Diagnosis: Same as Pre-op Surgeon: Raghav Haro Yeast Pumper: Lupe Wen Anesthesia: General Specimens Removed: gallbladder Estimated Blood Loss (mls): 3 Operative Report Dictated: Yes
--- NOTE | 2017-04-08 15:07 | SURG ---
[facility] Team Member Note [facility] Team Member: Lupe Wen PA-C Date of Service: 04/08/17 Diagnosis: cholelithiasis and choledocholithiasis Procedure: Laparoscopic cholecystectomy I was present for the entirety of the operative procedure. For further detail, please refer to operative report. Visit type - Case Type Case Type: ED Admission - Emergency Emergency Visit: Yes ED Registration Date: 04/02/17 Care time: The patient presented to the Emergency Department on the above date and was hospitalized for further evaluation of their emergent condition. - New patient This patient is new to me today: Yes Date on this admission: 04/08/17
[2017-04-08] MEDS ORDERED: HYDROmorphone HCL CARPU-JECT 1 MG/1 ML DISP.SYRIN IVPUSH PRN (15:08)
[2017-04-08] MEDS ORDERED: PROMETHAZINE HCL 25 MG/1 ML VIAL IVPUSH PRN (15:08)
[2017-04-08] MEDS ORDERED: ONDANSETRON 4 MG/2 ML VIAL IVPUSH PRN (15:49)
[2017-04-08] MEDS: LACTATED RINGERS SOLUTION 1,000 ML IV SCH ×2 (16:00→17:27)
--- NOTE | 2017-04-08 20:08 | PN ---
Progress Note, Physician History of Present Illness: S/P lap choley Pt tolerating liquids - Current Medication List Current Medications: Active Medications Heparin Sodium (Porcine) (Heparin -) 5,000 unit SQ BID [facility] Hydromorphone HCl (Dilaudid Injection -) 0.5 mg IVPUSH [id number] PRN PRN Reason: PAIN Stop: 04/11/17 15:09 Lactated Ringer's (Lactated Ringers Solution) 1,000 mls @ 75 mls/hr IV ASDIR [facility] Last Admin: 04/08/17 17:27 Dose: 75 mls/hr Piperacillin/Tazobactam/Dextrose (Zosyn 3.375gm Ivpb (Premix)) 50 mls @ 100 mls /hr IVPB Q8H-IV [facility] Last Admin: 04/08/17 17:26 Dose: 100 mls/hr Metoclopramide HCl (Reglan Injection -) 10 mg IVPB Q8H-IV [facility] Last Admin: 04/08/17 18:05 Dose: 10 mg Ondansetron HCl (Zofran Injection) 4 mg IVPUSH Q6H PRN PRN Reason: NAUSEA Promethazine HCl (Phenergan Injection -) 12.5 mg IVPUSH Q6H PRN PRN Reason: NAUSEA-FOR RESCUE AFTER 15 MIN Stop: 04/08/17 21:09 Tramadol HCl (Ultram -) 50 mg PO Q6H PRN PRN Reason: PAIN - Objective Vital Signs: Vital Signs Temperature 97.8 F 04/08/17 16:35 Pulse Rate 78 04/08/17 16:35 Respiratory Rate 18 04/08/17 16:35 Blood Pressure 129/78 04/08/17 16:35 O2 Sat by Pulse Oximetry (%) 96 04/08/17 16:20 Constitutional: Yes: Well Nourished Neck: Yes: WNL, Supple Cardiovascular: Yes: WNL, Regular Rate and Rhythm Respiratory: Yes: WNL, Regular, CTA Bilaterally Gastrointestinal: Yes: WNL, Normal Bowel Sounds, Soft, Other ((+) incisional tenderness) Labs: CBC, BMP 04/07/17 06:05 04/06/17 06:00 INR, PTT INR 1.21 (0.82-1.09) H 04/04/17 06:00 Problem List - Problems (1) Acute cholecystitis Assessment/Plan: S/P lap choley LFT"S were still elevated Repeat labs in amd if improved then dc planning Advance diet as per surgery Code(s): K81.0 - ACUTE CHOLECYSTITIS
--- NOTE | 2017-04-08 20:47 | PN ---
GI Progress Note Subjective: Patient is post-op and pain-free! - Objective Vital Signs: Vital Signs Temperature 97.8 F 04/08/17 16:35 Pulse Rate 78 04/08/17 16:35 Respiratory Rate 18 04/08/17 16:35 Blood Pressure 129/78 04/08/17 16:35 O2 Sat by Pulse Oximetry (%) 96 04/08/17 16:20 Constitutional: Obese HENT: Yes: Normocephalic Neck: Yes: Supple Cardiovascular: Yes: Regular Rate and Rhythm Respiratory: Yes: CTA Bilaterally Gastrointestinal Inspection: Yes: WNL ...Auscultate: Yes: Normoactive Bowel Sounds ...Palpate: Yes: Soft. No: Tenderness Labs: CBC, BMP 04/07/17 06:05 04/06/17 06:00 INR, PTT INR 1.21 (0.82-1.09) H 04/04/17 06:00 Hepatic Panel Total Bilirubin 2.2 mg/dL (0.2-1.0) H 04/07/17 06:05 Direct Bilirubin 1.5 mg/dL (0.0-0.2) H 04/07/17 06:05 AST 349 U/L (15-37) H 04/07/17 06:05 ALT 678 U/L (12-78) H 04/07/17 06:05 Alkaline Phosphatase 145 U/L (45-117) H 04/07/17 06:05 Albumin 2.9 g/dl (3.4-5.0) L 04/07/17 06:05 Assessment/Plan Doing very well post-op Agree with d/c plan but would wait until AM labs available.
[2017-04-09] MEDS: traMADol HCL 50 MG TABLET PO PRN ×2 (02:17→08:13)
[2017-04-09] MEDS: PIPERACILLIN/TAZOB 3.375 GM 50 ML IVPB SCH ×2 (02:19→09:24)
[2017-04-09] MEDS: METOCLOPRAMIDE HCL INJECTION 10 MG/2 ML VIAL IVPB SCH ×2 (02:19→10:24)
[2017-04-09 07:46] LABS: BASOPHIL 0.4 % (0-2.0); EOSINOPHIL 0.4 % (0-4.5); MCH 28.1 pg (25.7-33.7); MCHC 33.9 g/dl (32.0-36.0); MEAN PLT VOLUME 9.5 fl (7.5-11.1); NEUTROPHILS 72.9 % (42.8-82.8); PLATELET COUNT 234 K/MM3 (134-434); RDW 14.4 % (11.6-15.6); WHITE BLOOD COUNT 9.6 K/mm3 (4.0-10.0)
[2017-04-09 08:52] LABS: ALBUMIN 3.2 g/dl (3.4-5.0); ALK PHOS 140 U/L (45-117); ANION GAP 10 (8-16); BILIRUBIN,TOTAL 1.7 mg/dL (0.2-1.0); CALCIUM 8.7 mg/dL (8.5-10.1); CO2 24 mmol/L (21-32); CREATININE 0.4 mg/dL (0.55-1.02); GLUCOSE,RANDOM 71 mg/dL (74-106); SGOT/AST 295 U/L (15-37); TOT PROT 6.7 g/dl (6.4-8.2)
[2017-04-09 08:56] LABS: SGPT/ALT 656 U/L (12-78)
--- NOTE | 2017-04-09 08:56 | OP ---
DATE OF OPERATION: 04/08/2017 PROCEDURE: Laparoscopic cholecystectomy. PREOPERATIVE DIAGNOSIS: Cholelithiasis and choledocholithiasis. POSTOPERATIVE DIAGNOSIS: Cholelithiasis and choledocholithiasis. SURGEON: Raghav Haro MD [employer] SALESPERSON: GIGI Sandoval ANESTHESIA: General endotracheal. FINDINGS AND PROCEDURE: This is a 27-year-old female who presented with several days' history of abdominal pain which was intermittent at first and becoming persistent and worse the day prior to admission. On initial evaluation, patient had epigastric and right upper quadrant tenderness. CT, preop ultrasound revealed gallbladder with multiple stones and 11-mm common bile duct. An MRCP was ordered upon admission, which showed dilated common bile duct with multiple filling defects suspicious of choledocholithiasis. Patient also had multiple gallstones but no sign of acute cholecystitis, so patient underwent ERCP, sphincterotomy and removal common bile duct stones and stent placement a few days prior to the procedure. Patient was then advised removal of the gallbladder, and consent was obtained after discussing the risks, benefits, and alternatives to the procedure. Patient was brought to the operating room and placed in supine position. General endotracheal anesthesia was administered. The abdomen was prepped and draped in the usual sterile fashion. Using 0.5% Marcaine, local anesthesia was administered to the proposed incision sites. The peritoneal cavity was entered using the Veress needle technique to establish pneumoperitoneum. This was followed by insertion of a 5-mm 30-degree scope inserted in a 5-mm optical port. The peritoneal cavity was carefully inspected and was noted to be free of inadvertent injury. The patient was then placed in reverse Trendelenburg, left side down position. A 12-mm port was inserted at the subxiphoid region, and two 5-mm ports were inserted at the right subcostal region at the midclavicular and anterior axillary lines. The gallbladder was noted to be mildly distended, but no thickened diaz. The gallbladder fundus was grasped and retracted superior anteriorly, and the infundibulum was grasped and retracted inferolaterally to expose the triangle of Calot. At this point the gallbladder was noted to be deeply seated in the gallbladder bed. The visceral peritoneum covering the triangle was scored using the hook dissector connected to monopolar cautery. This partially exposed the cystic duct as well as liver bed. A window was created between the liver bed, gallbladder, and the structure that was presumed to be the cystic artery to establish the critical view of safety using the [place] dissector. Cystic duct and the cystic artery were then subsequently isolated and skeletonized. The cystic duct was noted to be quite elongated, and careful inspection of the tubular structure revealed that there was no cystic duct stone impacted in the structure. The cystic duct was then clipped at 4 points, followed by transection, leaving 3 clips at the cystic duct stump. The cystic artery was likewise clipped at 3 points, followed by transection, leaving 2 clips at the cystic artery stump. The gallbladder was then resected from its bed in antegrade fashion using the hook dissector connected to monopolar cautery. The small amount of blood and dissection fluid was cleaned with a 4 x 4 Ray-Keaton placed intraperitoneally to catch the fluid and absorb the fluid. The gallbladder was completely resected. The organ was placed in an Endo bag and extracted via the subxiphoid incision. Prior to that, the 4 x 4 was removed using the [place] dissector. After it was certain that there was no active bleeding, the pneumoperitoneum was evacuated and the ports were removed. The wounds were closed with subcuticular Biosyn 4-0 sutures reinforced with Dermabond. The patient was successfully extubated and transferred to the postanesthesia care unit in satisfactory condition. ESTIMATED BLOOD LOSS: About 3 mL. WOUND CLASS: Clean, contaminated. The patient was already on intravenous antibiotics prior to the start of the procedure. Oren [id number]
[2017-04-09 08:59] VITALS: BP 128/81; PULSE 78; TEMP 98
--- NOTE | 2017-04-09 09:59 | PN ---
Progress Note (short form) - Note Progress Note: Anesthesia post op note. POD#1 s/P Lap cholecystectomy. Patient seen and examined,VSS, tolerating po. pain well controlled. No apparent post anesthesia complications. Signed off.
[2017-04-09] MEDS: HEPARIN NA (PORCINE) 5,000 UNITS/ML 1ML VIAL SQ SCH (10:27)
--- NOTE | 2017-04-11 16:11 | PATH ---
Surgical Pathology Report Patient Name: MARIANNE VELAZQUEZ Med. Rec. #: [id number] /Age/Gender: 1990 (Age: 27) / F Account: [id number] Location: [facility] MED/SURG Taken: 04/08/2017 Received: 04/09/2017 Reported: 04/11/2017 Physicians: Raghav Haro M.D. Specimen(s) Received GALLBLADDER Clinical History Cholelithiasis, choledocholithiasis Final Diagnosis GALLBLADDER, CHOLECYSTECTOMY: CHRONIC CHOLECYSTITIS AND CHOLELITHIASIS. BENIGN PERICYSTIC LYMPH NODE. Electronically Signed Lucero Gaston M.D. Gross Description Received in formalin, labeled "gallbladder," is a 8.0 x 2.5 x 2.3 cm. gallbladder with a 0.2 cm. in length portion of cystic duct attached. There is a 0.7 x 0.5 x 0.5 cm cm periductal lymph node present The outer surface is cm green and varies from smooth to shaggy. The lumen contains green, tenacious bile as well as abundant yellow, irregular choleliths ranging from 0.1-0.5 cm in greatest dimension. The mucosa is green and velvety. The wall of the gallbladder averages 0.1 cm. in thickness. Sole Stapler Welt sections including one whole bisected lymph node are submitted in one cassette. 04/09/201704/09/2017
== END 2017-04-09 13:02 | disposition home or self-care (01) | DRG 263 ==
LOC: JER 20:43 → JERBED 04-02 02:07 → J7W 04-02 14:14
PROVIDERS: ADMIT Internal Medicine; ATTEND Internal Medicine
PROC: 0F788DZ Dilation of Cystic Duct with Intraluminal Device, Via Natural or Artificial Opening Endoscopic (ICD-10-PCS; 2017-04-05)
PROC: 0FT44ZZ Resection of Gallbladder, Percutaneous Endoscopic Approach (ICD-10-PCS; principal; 2017-04-08 13:00)
DX: K80.00 Calculus of gallbladder with acute cholecystitis without obstruction (principal); Z68.41 Body mass index [BMI] 40.0-44.9, adult; E66.01 Morbid (severe) obesity due to excess calories; Z98.84 Bariatric surgery status; K21.9 Gastro-esophageal reflux disease without esophagitis; F17.210 Nicotine dependence, cigarettes, uncomplicated; F10.10 Alcohol abuse, uncomplicated
CPT/HCPCS: 36415; 74181-TC; 74330-TC; 76705-TC; 80053; 80076; 81003; 81015; 83690; 84702; 84703; 85025; 85610; 85730; 87086; 88304-TC; 94760; 99284-25; J1644

== ENCOUNTER 2018-05-12 10:45 | Emergency (ER) | payer OTHER ==
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
[2018-05-12] MEDS ORDERED: ACETAMINOPHEN 500 MG TABLET (FP) PO ONE (11:02)
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
[2018-05-12 11:12] VITALS: BP 128/88; PULSE 77; TEMP 98.7; BMI 41.1
[2018-05-12] MEDS ORDERED: ACETAMINOPHEN 500 MG TABLET (FP) ONE (11:18)
== END 2018-05-12 11:35 | disposition home or self-care (01) ==
LOC: FER 10:45
DX: S39.012A Strain of muscle, fascia and tendon of lower back, initial encounter (principal); S16.1XXA Strain of muscle, fascia and tendon at neck level, initial encounter; V43.52XA Car driver injured in collision with other type car in traffic accident, initial encounter; Y93.89 Activity, other specified; Y92.410 Unspecified street and highway as the place of occurrence of the external cause
CPT/HCPCS: 99281-25

== ENCOUNTER 2022-05-13 14:12 | Emergency (ER) | payer OTHER ==
[2022-05-13] MEDS ORDERED: DIPHTH,PERTUSS(ACELL),TET 0.5 ML DISP.SYRIN IM ONE (14:22)
[2022-05-13 14:28] VITALS: BP 124/90; PULSE 84; RESP 18; TEMP 98.8; BMI 41.2
== END 2022-05-13 15:09 | disposition home or self-care (01) ==
LOC: FER 14:12
PROC: 0HQGXZZ Repair Left Hand Skin, External Approach (ICD-10-PCS; principal; 2022-05-13)
PROC: 3E0234Z Introduction of Serum, Toxoid and Vaccine into Muscle, Percutaneous Approach (ICD-10-PCS; 2022-05-13)
DX: S61.213A Laceration without foreign body of left middle finger without damage to nail, initial encounter (principal); W26.0XXA Contact with knife, initial encounter; Y93.G1 Activity, food preparation and clean up
CPT/HCPCS: 12001-25; 73140-TC-LT-FY; 90471; 90715; 99284-25

== ENCOUNTER 2023-03-18 12:58 | Emergency (ER) | payer OTHER ==
[2023-03-18 13:14] VITALS: BP 121/85; PULSE 86; RESP 18; TEMP 98.2; BMI 35.1
== END 2023-03-18 14:02 | disposition home or self-care (01) ==
LOC: FER 12:58
DX: S90.821A Blister (nonthermal), right foot, initial encounter (principal); S90.822A Blister (nonthermal), left foot, initial encounter; X50.1XXA Overexertion from prolonged static or awkward postures, initial encounter
CPT/HCPCS: 99283-25